=== PATIENT | female | born 1945 | race Caucasian/White ===

== ENCOUNTER → 2018-08-19 | Day surgery (SDC) | payer MEDICARE ==
[2018-08-17 10:25] LABS: BASOPHILS # (AUTO) 0.1 (0.0-0.1); BASOPHILS % 1.5 % (0.0-1.0); EOSINOPHILS # (AUTO) 0.2 (0.0-0.4); EOSINOPHILS % 3.5 % (0.0-6.0); HEMATOCRIT 41.2 % (34.2-44.1); HEMOGLOBIN 13.6 g/dL (12.0-16.0); LYMPHOCYTES # (AUTO) 2.5 (1.0-3.2); LYMPHOCYTES % 38.3 % (18.0-39.1); MEAN CORPUSCULAR HEMOGLOBIN 31.4 pg (28-32); MEAN CORPUSCULAR VOLUME 95.2 fL (81-99); MONOCYTES # (AUTO) 0.8 (0.2-0.8); MONOCYTES % 11.6 % (4.4-11.3); NEUTROPHILS # (AUTO) 2.9 (2.1-6.9); NEUTROPHILS % 44.8 % (38.7-80.0); PLATELET COUNT 364 x10e3/uL (140-360); RED BLOOD COUNT 4.33 x10e6/uL (3.6-5.1); RED CELL DISTRIBUTION WIDTH 12.4 % (11.7-14.4)
[~2018-08-19] MED LIST: BENTYL10 MG PO; CALCIUM ACETAT667 MG PO; CITRACAL PO; CYMBALTA30 MG PO; CYMBALTA60 MG PO; FENTANYL CITRATE/PF 100MCG/2 ML INJ ONE; GLUCAGON FOR INJ 1 MG VIAL ONE; HYOSCYAMINE SULFATE 0.5 MG/ML INJ ONE; LOSARTAN POTAS100 MG PO; METANX PO; METOCLOPRAMIDE HCL 10 MG/2ML VIAL ONE; MIDAZOLAM HCL 2 MG/2 ML VIAL ONE; MULTI-VITAMIN1 EACH PO; NEXIUM40 MG PO; PHENYLEPHRINE HCL 1% 10 MG/ML VIAL ONE; PROPOFOL IV EMULSION 10 MG/ML 50 ML VIAL ONE; RANITIDINE HCL300 MG PO; TYMLOS INJ; VALTREX500 MG PO; VIT D3 PO; VITAMIN D31000 UNIT PO; ZANTAC300 MG PO
--- OUTSIDE RECORDS SUMMARY | 2018-08-19 09:41 | XMS REPORT ---
Author Farhad Mejia [facility] eClinicalWorks Address Unknown Phone Unavailable Care Team Providers Care Ship'S Surveyor Name Role Phone Farhad Ferrell CP Unavailable Allergies, Adverse Reactions, Alerts Substance Reaction Event Type N.K.D.A. Info Not Available Non Drug Allergy Problems Problem Type Condition Code Onset Dates Condition Status Problem Vitamin D deficiency E55.9 Active Problem Primary osteoarthritis involving multiple joints M15.0 Active Problem Polymyalgia rheumatica M35.3 Active Assessment Primary osteoarthritis involving multiple joints M15.0 Active Problem Polyarthralgia M25.50 Active Assessment Polymyalgia rheumatica M35.3 Active Medications Medication Code System Code Instructions Start Date End Date Status Dosage Cymbalta ND 54609836666 60MG Active TAKE 1 CAPSULE ONCE DAILY Amitriptyline HCl ND 20763907251 10 MG Orally q hs [place] 1 [place] [address]-79 3-35-2 MG Orally Twice a day Active 1 tablet Tramadol NDC 0 50 mg orally bid November 23, 2017 May 22, 2018 Active one tab Ranitidine HCl ND 93859273303 300 MG Orally Once a day Active 1 capsule at bedtime Tymlos NDC 0 2000mcg/ml SC Once a day Active 80 mcg Centrum Silver Ultra Mens ND 82267190434 Orally once a day Active 1 capsule Citracal Plus ND 80623132190 630 mg Orally once a day Active 1 capsule PredniSONE ND 65506447765 5 MG Orally q am with food Active 1 tablet Valtrex ND 33884445459 1 GM Orally q day prn for fever blisters Active 1 tablet Magnesium Oxide ND 18948193156 400 MG Orally Once a day Active 1 capsule Losartan Potassium ND 30814341983 100 MG Orally Once a day Active 1 tablet Vitamin D-3 ND 85471678173 1000 UNIT Orally Once a day Active 1 capsule Nexium ND 18289315705 40 MG Orally Once a day Active 1 capsule Vital Signs Date/Time: November 23, 2017 BMI 22.11 Index Weight 132.9 lbs Height 65 in Temperature 98.7 F Cardiac Monitoring Heart Rate 88 /min Blood Pressure Diastolic 80 mm Hg Blood Pressure Systolic 158 mm Hg Results No Known Results Summary Purpose eClinicalWorks Submission
--- OUTSIDE RECORDS SUMMARY | 2018-08-19 09:41 | XMS REPORT ---
Author Farhad Mejia [facility] eClinicalWorks Address Unknown Phone Unavailable Care Team Providers Care Extruder Name Role Phone Farhad Ferrell CP Unavailable Allergies No Known Allergies Problems Problem Type Condition Code Onset Dates Condition Status Problem Vitamin D deficiency E55.9 Active Problem Primary osteoarthritis involving multiple joints M15.0 Active Problem Polymyalgia rheumatica M35.3 Active Problem Polyarthralgia M25.50 Active Medications No Known Medications Results No Known Results Summary Purpose eClinicalWorks Submission
--- OUTSIDE RECORDS SUMMARY | 2018-08-19 09:41 | XMS REPORT | Continuity of Care Document ---
Author Author Amelia omaira [facility] Address Unknown Phone Unavailable Problems Problem Status Onset Date Classification Date Reported Comments Source Vitamin D deficiency Active Problem 06/23/2018 Bony Ferrell Primary osteoarthritis involving multiple joints Active Problem 06/23/2018 Bony Ferrell Polymyalgia rheumatica Active Problem 06/23/2018 Bony Ferrell Polyarthralgia Active Problem 06/23/2018 Bony Ferrell Medications Medication Details Route Status Patient Instructions Ordering Provider Order Date Source Tramadol one tab orally Active 50 mg orally bid [place] 11/23/2017 Bony Ferrell Cymbalta TAKE 1 CAPSULE ONCE DAILY NA Active 60MG [facility] Bony Ferrell Amitriptyline HCl 1 tablet Orally Active 10 MG Orally q hs [facility] Bony Ferrell Metanx 1 tablet Orally Active 3-35-2 MG Orally Twice a day [facility] Bony Ferrell Ranitidine HCl 1 capsule at bedtime Orally Active 300 MG Orally Once a day [facility] Bony Ferrell Tymlos 80 mcg SC Active 2000mcg/ml SC Once a day [facility] Bony Ferrell Centrum Silver Ultra Mens 1 capsule Orally Active Orally once a day [facility] Bony Ferrell Citracal Plus 1 capsule Orally Active 630 mg Orally once a day [facility] Bony Ferrell PredniSONE 1 tablet Orally Active 5 MG Orally q am with food [facility] Bony Ferrell Valtrex 1 tablet Orally Active 1 GM Orally q day prn for fever blisters [facility] Bony Ferrell Magnesium Oxide 1 capsule Orally Active 400 MG Orally Once a day [facility] Bony Ferrell Losartan Potassium 1 tablet Orally Active 100 MG Orally Once a day [place] Bony Ferrell Vitamin D-3 1 capsule Orally Active 1000 UNIT Orally Once a day [facility] Bony Ferrell Nexium 1 capsule Orally Active 40 MG Orally Once a day [facility] Bony Ferrell Allergies, Adverse Reactions, Alerts Substance Category Reaction Severity Reaction type Status Date Reported Comments Source N.K.D.A. Adverse Reaction Info Not Available Adverse Reaction Active 11/23/2017 Bony Ferrell Immunizations Immunization Date Given Site Status Last Updated Comments Source Results Order Name Results Value Reference Range Date Interpretation Comments Source Ankle 3 views DX Ankle 3 views DX RIGHT ANKLE Clinical Indication: Right ankle inversion injury Comparison: None FINDINGS: The 3 views of the right ankle show normal alignment without fractures or dislocations. The tibiotalar joint and talar dome are unremarkable. The subtalar joint is unremarkable. There is no ankle joint effusion. The ankle mortise is intact. The distal tibia-fibular alignment is unremarkable. There is no soft tissue swelling or radiopaque foreign bodies. If there is further concern, recommend follow-up radiographs or MRI for complete assessment. IMPRESSION: 1. No fractures or dislocation of the ankle. SL: [id number] 07/26/2016 - - Read by: Chitra Wiseman MD Dictated Date/time: 07/26/16 14:09 Electronically Signed by: Chitra Wiseman MD 07/26/16 14:10 FINAL REPORT [facility] Vital Signs Vital Sign Value Date Comments Source Weight 132.9 11/23/2017 Bony Ferrell Height 65 11/23/2017 Bony Ferrell Temperature Oral (F) 98.7 F 11/23/2017 Bony Ferrell Heart Rate 88 11/23/2017 Bony Ferrell Diastolic (mm Hg) 80 11/23/2017 Bony Ferrell Systolic (mm Hg) 158 11/23/2017 Bony Ferrell Encounters Location Location Details Encounter Type Encounter Number Reason For Visit Attending Provider ADM Date DC Date Status Source Outpatient [id number] [facility]2016 [facility] Procedures Procedure Code Date Perfomer Comments Source
[2018-08-19 13:20] VITALS: BP 108/64
--- NOTE | 2018-08-19 14:11 | Operative Report ---
DATE OF PROCEDURE: August 19, 2018 REFERRING PHYSICIAN: Dr. Mayuri Goldberg. PROCEDURE PERFORMED: Esophagogastroduodenoscopy with biopsies and colonoscopy. INDICATIONS FOR ESOPHAGOGASTRODUODENOSCOPY: Upper abdominal pain, indigestion. INDICATIONS FOR COLONOSCOPY: Surveillance colonoscopy, personal history of colon polyps. MEDICATION: Patient was done under MAC. Please see anesthesiologist's note. PROCEDURE: With patient in the left lateral decubitus position, the flexible fiberoptic Olympus gastroscope was introduced into the esophagus under direct visualization without any difficulty. A minute tongue of velvety red mucosa was noted to extend proximally from the GE junction and that was biopsied to rule out Fam's. Scope was then advanced with ease into the stomach and mucosa overlying the antrum and the body revealed some patchy erythema and low-grade to moderate edema and biopsies were obtained and sent to stain for H. pylori. There were some scattered hyperplastic appearing polyps noted in the body. Some were partially excised with cold biopsy forceps. The pylorus was of normal contour and shape. It was intubated with ease and the scope was advanced all the way to the 2nd portion of the duodenum. The scope was then withdrawn slowly. Mucosa overlying the proximal 2nd portion and the duodenal bulb appeared to be within normal limits. The scope was then withdrawn back into the stomach and retroflexed and mucosa overlying the fundus and the cardia appeared to be within normal limits. The scope was then straightened out. It was subsequently withdrawn. Patient tolerated the procedure well. IMPRESSION: 1. Rule out Fam's esophagus. 2. Gastritis biopsied. Biopsy sent to stain for H. pylori. 3. Gastric polyps, body, hyperplastic appearing. Some partially excised with cold biopsy forceps. PLAN: Follow up histology. Continue Nexium 40 mg 1 p.o. a.c. b.i.d. and Zantac 300 mg 1 p.o. nightly. PROCEDURE: Patient was then turned around and after adequate lubrication of the anal canal a flexible fiberoptic Olympus colonoscope was inserted into the rectum with ease and advanced all the way to the cecum. It was then withdrawn slowly and other than for diverticular disease the mucosa overlying the ascending, transverse, descending, sigmoid and rectum appeared to be within normal limits. The scope was then retroflexed into the distal rectum and small internal hemorrhoids were noted, none of which was actively bleeding. The scope was then straightened out. It was subsequently withdrawn. Patient tolerated the procedure well. IMPRESSION 1. Diverticulosis. 2. Internal hemorrhoids, none actively bleeding. PLAN: Initiate high-fiber, low-fat diet. Initiate high-fiber supplement. Patient might need benefit from a followup colonoscopy in 3 to 5 years. Job#: [id number] cc:MAYURI GOLDBERG MD
== END | disposition home or self-care (01) ==
LOC: OR 09:39
PROVIDERS: ATTEND Internal Medicine Gastroenterology
DX: K29.70 Gastritis, unspecified, without bleeding (principal); K31.7 Polyp of stomach and duodenum; K57.30 Diverticulosis of large intestine without perforation or abscess without bleeding; K64.8 Other hemorrhoids; I10 Essential (primary) hypertension; I49.3 Ventricular premature depolarization; Z01.810 Encounter for preprocedural cardiovascular examination; Z01.812 Encounter for preprocedural laboratory examination
CPT/HCPCS: 36415; 43239; 45378; 85025; 93005; J1610; J1980; J2250; J2370; J2765